=== PATIENT | female | born 1995 | race Two or more races ===

== ENCOUNTER → 2019-03-26 | Outpatient (CLI) | payer OTHER | END | disposition home or self-care (01) | LOC: PRENATAL 13:00 | DX: O99.212 Obesity complicating pregnancy, second trimester (principal); O09.92 Supervision of high risk pregnancy, unspecified, second trimester; Z36 Encounter for antenatal screening of mother ==

== ENCOUNTER 2019-04-18 11:18 | Outpatient (CLI) | payer OTHER | END 2019-04-18 11:30 | disposition home or self-care (01) | LOC: LAB 11:18 | DX: J11.1 Influenza due to unidentified influenza virus with other respiratory manifestations (principal); J11.81 Influenza due to unidentified influenza virus with encephalopathy ==

== ENCOUNTER → 2019-04-29 | Outpatient (CLI) | payer OTHER | END | disposition home or self-care (01) | LOC: PRENATAL 14:00 | DX: O26.842 Uterine size-date discrepancy, second trimester (principal); O99.212 Obesity complicating pregnancy, second trimester ==

== ENCOUNTER 2019-07-18 09:54 | Inpatient (IN) | payer OTHER ==
[~2019-07-18] VITALS: Ht 170.2 cm; Wt 106.6 kg
== END 2019-08-24 13:54 | disposition home or self-care (01) | DRG 807 ==
LOC: OB/GYN 07-25 15:00 → LDR 08-22 05:25 → OB/GYN 08-22 05:25
PROVIDERS: ADMIT Specialist
PROC: 10E0XZZ Delivery of Products of Conception, External Approach (ICD-10-PCS; principal; 2019-08-22)
PROC: 10907ZC Drainage of Amniotic Fluid, Therapeutic from Products of Conception, Via Natural or Artificial Opening (ICD-10-PCS; 2019-08-22)
PROC: 0W8NXZZ Division of Female Perineum, External Approach (ICD-10-PCS; 2019-08-22)
PROC: 3E033VJ Introduction of Other Hormone into Peripheral Vein, Percutaneous Approach (ICD-10-PCS; 2019-08-22)
PROC: 4A1HXCZ Monitoring of Products of Conception, Cardiac Rate, External Approach (ICD-10-PCS; 2019-08-22)
DX: O80 Encounter for full-term uncomplicated delivery (principal); Z37.0 Single live birth; Z3A.39 39 weeks gestation of pregnancy; Z22.330 Carrier of Group B streptococcus

== ENCOUNTER 2019-08-08 00:52 | Outpatient (CLI) | payer OTHER | END 2019-08-08 16:04 | disposition home or self-care (01) | LOC: OBS/DEL 00:52 | DX: O26.843 Uterine size-date discrepancy, third trimester (principal); O26.853 Spotting complicating pregnancy, third trimester; O47.1 False labor at or after 37 completed weeks of gestation ==

== ENCOUNTER → 2020-02-25 | Outpatient (CLI) | payer OTHER | END | disposition home or self-care (01) | LOC: PRENATAL 08:41 | DX: O35.3XX0 Maternal care for (suspected) damage to fetus from viral disease in mother, not applicable or unspecified (principal); Z36.89 Encounter for other specified antenatal screening ==

== ENCOUNTER 2020-06-15 09:14 | Outpatient (CLI) | payer OTHER | END 2020-06-15 15:00 | disposition home or self-care (01) | LOC: LAB 09:14 | PROVIDERS: ATTEND General Practice | DX: J11.1 Influenza due to unidentified influenza virus with other respiratory manifestations (principal); Z20.828 Contact with and (suspected) exposure to other viral communicable diseases; R05 Cough; Z11.59 Encounter for screening for other viral diseases ==

== ENCOUNTER 2020-06-24 09:10 | Inpatient (IN) | payer OTHER ==
[~2020-06-24] VITALS: Ht 167.6 cm; Wt 108.4 kg
== END 2020-07-18 13:39 | disposition home or self-care (01) | DRG 798 ==
LOC: LDR 07-16 05:19 → O/R 07-16 05:19 → LDR 07-16 23:44 → O/R 07-17 10:09 → OB/GYN 07-17 14:13 → LDR 07-21 12:00
PROVIDERS: ADMIT Specialist; ATTEND Specialist
PROC: 10E0XZZ Delivery of Products of Conception, External Approach (ICD-10-PCS; principal; 2020-07-16)
PROC: 10907ZC Drainage of Amniotic Fluid, Therapeutic from Products of Conception, Via Natural or Artificial Opening (ICD-10-PCS; 2020-07-16)
PROC: 4A1HXFZ Monitoring of Products of Conception, Cardiac Rhythm, External Approach (ICD-10-PCS; 2020-07-16)
PROC: 3E033VJ Introduction of Other Hormone into Peripheral Vein, Percutaneous Approach (ICD-10-PCS; 2020-07-16)
PROC: 0UB70ZZ Excision of Bilateral Fallopian Tubes, Open Approach (ICD-10-PCS; 2020-07-17)
DX: O80 Encounter for full-term uncomplicated delivery (principal); Z37.0 Single live birth; Z3A.39 39 weeks gestation of pregnancy; Z30.2 Encounter for sterilization; Z20.828 Contact with and (suspected) exposure to other viral communicable diseases